=== PATIENT | female | born 1930 | race African-American/Black ===

== ENCOUNTER 2018-09-21 21:13 | Inpatient (IN) | payer MEDICARE, OTHER ==
[~2018-09-21] VITALS: Ht 154.9 cm; Wt 81.3 kg
[2018-09-21 21:15] VITALS: BP 171/89
[2018-09-21] MEDS ORDERED: Acetaminophen 650 MG SUPP RECTAL ONE (21:30)
[2018-09-21] MEDS ORDERED: NS 1000ml 2,200 ML IVLG ONE (21:30)
[2018-09-21] MEDS ORDERED: Piperacillin/Tazobactam 3.375 GM in NS 110 ML IVPB ONE (22:15)
[2018-09-21 22:47] LABS: HEMATOCRIT 33.9 % (37.0-47.0); HEMOGLOBIN 11.5 G/DL (12.0-16.0); MEAN CORPUSCULAR VOLUME 89 FL (80-99); PLATELET COUNT 103 K/UL (150-450); RED CELL DISTRIBUTION WIDTH 12.5 % (11.6-14.8)
[2018-09-21 22:51] LABS: ANION GAP 9 mmol/L (5-15); BLOOD UREA NITROGEN 31 mg/dL (7-18); CARBON DIOXIDE 25 MMOL/L (21-32); CHLORIDE 106 MMOL/L (98-107); CREATININE 1.4 MG/DL (0.55-1.30); POTASSIUM 4.2 MMOL/L (3.5-5.1); SODIUM 139 MMOL/L (136-145)
[2018-09-21 23:04] LABS: ALANINE AMINOTRANSFERASE 33 U/L (12-78); ALBUMIN 2.9 G/DL (3.4-5.0); ALBUMIN/GLOBULIN RATIO 0.7 (1.0-2.7); ALKALINE PHOSPHATASE 84 U/L (46-116); ASPARTATE AMINO TRANSFERASE 29 U/L (15-37); BILIRUBIN,TOTAL 0.6 MG/DL (0.2-1.0); CKMB 1.4 NG/ML (0.0-3.6); CREATINE KINASE 75 U/L (26-308)
[2018-09-21 23:42] LABS: BILIRUBIN, URINE NEGATIVE (NEGATIVE); GLUCOSE, URINE (UA) NEGATIVE (NEGATIVE); KETONES,URINE 1+ (NEGATIVE); LEUKOCYTE ESTERASE ,URINE 3+ (NEGATIVE); NITRITE,URINE POSITIVE (NEGATIVE); PH,URINE 6 (4.5-8.0); PROTEIN,URINE 3+ (NEGATIVE); UROBILINOGEN,URINE NORMAL MG/DL (0.0-1.0)
[2018-09-21 23:53] LABS: COLOR,URINE YELLOW
[2018-09-21 23:54] LABS: APPEARANCE,URINE CLOUDY
--- NOTE | 2018-09-22 00:35 | Emergency Room Report ---
History of Present Illness General Chief Complaint: Fever Source: Medical Record, Caregiver Present Illness HPI Is an 88-year-old female with history hypertension and also,. She presents with chief complaint of fever and altered mental status. At baseline she is bed bound and noncommunicative. She had a high fever tonight. Decreased appetite. Sleeping more. 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 Allergies: Coded Allergies: No Known Allergies (Unverified , 09/21/18) Patient History Past Medical History: see triage record, old chart reviewed, HTN Past Surgical History: other Pertinent Family History: none Social History: Denies: smoking Last Menstrual Period: n/a Now: No Immunizations: other Reviewed Nursing Documentation: PMH: Agreed; PSxH: Agreed Nursing Documentation-PMH Past Medical History: No History, Except For Hx Cardiac Problems: Yes - hypertensive heart and renal disease, afib, Hx Hypertension: Yes Hx Dialysis: No - CKD stage 3 Hx Neurological Problems: Yes - alzheimer's, dementia, neuropathy Review of Systems Constitutional: Reports: fever, malaise, weakness Eye: Denies: eye pain, blurred vision ENT: Denies: ear pain, nose congestion, throat swelling Respiratory: Denies: cough, shortness of breath Cardiovascular: Denies: chest pain, palpitations Gastrointestinal: Denies: abdominal pain, diarrhea, nausea, vomiting Musculoskeletal: Denies: back pain, joint pain Skin: Denies: rash Neurological: Denies: headache, numbness Endocrine: Denies: increased thirst, increased urine Hematologic/Lymphatic: Denies: easy bruising All Other Systems: negative except mentioned in HPI Physical Exam Vital Signs Date Time Temp Pulse Resp B/P (MAP) Pulse Ox O2 Delivery O2 Flow Rate FiO2 09/21/18 21:06 101.1 100 16 171/89 98 Room Air vitals with fever and high blood pressure Sp02 EP Interpretation: reviewed, normal General Appearance: lethargic, Chronically Ill Head: normocephalic, atraumatic Eyes: bilateral eye PERRL, bilateral eye EOMI ENT: hearing grossly normal, dry mucus membranes Neck: full range of motion, supple, no meningismus Respiratory: chest non-tender, lungs clear, normal breath sounds Cardiovascular #1: regular rate, rhythm, no murmur Gastrointestinal: normal bowel sounds, non tender, no mass, no organomegaly, no bruit, non-distended Musculoskeletal: back normal, normal range of motion Neurologic: grossly normal Psychiatric: mood/affect normal Skin: warm/dry Medical Decision Making Diagnostic Impression: Primary Impression: Sepsis Qualified Codes: A41.9 - Sepsis, unspecified organism Additional Impressions: Acute metabolic encephalopathy Healthcare-associated pneumonia UTI (urinary tract infection) Qualified Codes: N30.00 - Acute cystitis without hematuria Anemia Qualified Codes: D64.9 - Anemia, unspecified ER Course Patient presents with encephalopathy secondary to sepsis from UTI. She may also have pneumonia. Antibiotics given. IV fluid given. Patient will be admitted to the service of Dr. Green. I discussed case with him. Lab Results Impression labs with positive urine EKG Diagnostic Results Rate: normal Rhythm: NSR ST Segments: no acute changes Rhythm Strip Diag. Results Rhythm Strip Time: 00:51 EP Interpretation: yes Rate: 90 Rhythm: NSR, no PVC's, no ectopy Chest X-Ray Diagnostic Results Chest X-Ray Diagnostic Results : Chest X-Ray Ordered: Yes # of Views/Limited/Complete: 1 View Indication: Shortness of Breath EP Interpretation: Yes Interpretation: no effusion, no pneumothorax, other - RML infiltrate Impression: Other - RML infiltrate Electronically Signed by: Haja Aden MD Last Vital Signs Date Time Temp Pulse Resp B/P (MAP) Pulse Ox O2 Delivery O2 Flow Rate FiO2 09/22/18 00:28 98.1 09/21/18 21:06 100 16 171/89 98 Room Air Status: improved Disposition: ADMITTED INPATIENT Condition: Serious Referrals: NON PHYSICIAN (PCP) Haja Aden MD Sep 22, 2018 00:35
[2018-09-22 01:00] VITALS: BP 134/84
[2018-09-22 04:00] VITALS: BP 142/82
[2018-09-22 08:00] VITALS: BP 147/66
[2018-09-22] MEDS ORDERED: ANUSOL HC1 SUPP RECTAL (08:24)
[2018-09-22] MEDS ORDERED: GABAPENTIN100 MG ORAL (08:24)
[2018-09-22] MEDS ORDERED: MIRALAX17 G2 ORAL (08:24)
[2018-09-22] MEDS ORDERED: ZYPREXA2.5 MG (08:24)
[2018-09-22] MEDS ORDERED: ESCITALOPRAM OX10 MG ORAL (08:24)
[2018-09-22] MEDS ORDERED: TRAMADOL HCL50 MG ORAL (08:24)
[2018-09-22] MEDS ORDERED: HYDROCORTISONE25 MG RC (08:24)
[2018-09-22] MEDS ORDERED: ASPIR 8181 MG ORAL (08:24)
[2018-09-22] MEDS ORDERED: SENNA8.6 M2 PO (08:24)
[2018-09-22] MEDS ORDERED: DUONEB 0.5-3(2.53 ML HHN (08:24)
[2018-09-22] MEDS ORDERED: DOCUSATE SODIU250 MG ORAL (08:24)
[2018-09-22] MEDS ORDERED: ACETAMINOPHEN325 M1 ORAL (08:24)
[2018-09-22] MEDS ORDERED: MULTI VITAMIN1 EACH ORAL (08:24)
[2018-09-22] MEDS ORDERED: AMLODIPINE BESYL5 MG ORAL (08:24)
[2018-09-22] MEDS ORDERED: Heparin 5000 units/ml inj SUBQ SCH (09:00)
[2018-09-22] MEDS: cefTRIAXone 1 GM in NS 55 ML IVPB SCH (10:37)
--- NOTE | 2018-09-22 11:55 | History & Physical ---
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 Patient had a fever of 101 earlier in the day and was transfered to the ER for further workup. She has a history of hospitalizations for UTIs. She is more lethargic per nurse at bedside and is sleeping but arousable. Ua shows > 180 WBC. Per staff at facility no cough. PAST MEDICAL HISTORY: ~Includes hypertension, dementia, hyperlipidemia, major depressive disorder, hypothyroidism, constipation, and DVT, on Coumadin. PAST SURGICAL HISTORY: ~Unknown. ALLERGIES: ~No known drug allergies. SOCIAL HISTORY: ~Per durable power of ip technology transactions attorney, the patient is full code. REVIEW OF SYSTEMS: Unobtainable because of the patient's mental status. MEDICATIONS: Active Scripts Medications Dose Route/Sig Max Daily Dose Days Date Category Ultram* (Tramadol HCl) 50 Mg Tablet 50 Mg ORAL BID PRN 09/22/18 Reported Senna (Sennosides) 8.6 Mg Tablet 8.6 Mg PO DAILY 09/22/18 Reported Zyprexa* (Olanzapine) 2.5 Mg Tablet 2.5 Mg BID 09/22/18 Reported Miralax* (Polyethylene Glycol) 17 Gm Powd.pack 17 Gm ORAL BID 09/22/18 Reported DuoNeb 0.5-3(2.5)mg/3ml (Ipratropium/Albuterol Sulfate) 3 Ml Ampul.neb 3 Ml HHN BID 09/22/18 Reported Hydrocortisone Acetate Supp (Hydrocortisone Acetate) Y Supp 25 Mg RC BID PRN 09/22/18 Reported Gabapentin* (Gabapentin) 100 Mg Capsule 100 Mg ORAL THREE TIMES A DAY 09/22/18 Reported Escitalopram Oxalate* (Escitalopram Oxalate) 10 Mg Tablet 10 Mg ORAL DAILY 09/22/18 Reported Docusate Sodium* (Docusate Sodium) 250 Mg Capsule 250 Mg ORAL TWICE A DAY 09/22/18 Reported Multi Vitamin Daily (Multivitamin) 1 Each Tablet 1 Tab ORAL DAILY 09/22/18 Reported Aspir 81* (Aspirin) 81 Mg Tablet.dr 81 Mg ORAL DAILY 09/22/18 Reported Anucort-Hc (Hydrocortisone) Y Supp 25 Mg RECTAL BID PRN 09/22/18 Reported Amlodipine Besylate* (Amlodipine Besylate) 5 Mg Tablet 5 Mg ORAL DAILY 09/22/18 Reported Acetaminophen 325MG Tablet* (Acetaminophen) 325 Mg Tablet 325 Mg ORAL BID PRN 09/22/18 Reported PHYSICAL EXAMINATION: VITAL SIGNS: Vital Signs Date Time Temp Pulse Resp B/P (MAP) Pulse Ox O2 Delivery O2 Flow Rate FiO2 09/21/18 21:06 101.1 100 16 171/89 98 Room Air 09/22/18 01:00 2.0 100 GEN: lethargic. arousable. minimally verbal ~~~HEENT: ~Normocephalic/atraumatic. ~Oropharynx is dry. ~~ NECK: ~Supple. ~No JVD. ~~ LUNGS: ~Clear to auscultation bilaterally. ~No crackles, rhonchi, or rales. ~~ CARDIOVASCULAR: ~Regular rate and rhythm. ~Normal S1, S2. ~~ ABDOMEN: ~Soft. ~Obese, slightly distended. ~~ EXTREMITIES: ~No clubbing, cyanosis, or edema. LABS: Laboratory Tests Test 09/21/18 22:10 09/21/18 23:15 White Blood Count 10.0 K/UL (4.8-10.8) Red Blood Count 3.80 M/UL (4.20-5.40) L Hemoglobin 11.5 G/DL (12.0-16.0) L Hematocrit 33.9 % (37.0-47.0) L Mean Corpuscular Volume 89 FL (80-99) Mean Corpuscular Hemoglobin 30.3 PG (27.0-31.0) Mean Corpuscular Hemoglobin Concent 33.9 G/DL (32.0-36.0) Red Cell Distribution Width 12.5 % (11.6-14.8) Platelet Count 103 K/UL (150-450) L Mean Platelet Volume 5.9 FL (6.5-10.1) L Neutrophils (%) (Auto) % (45.0-75.0) Lymphocytes (%) (Auto) % (20.0-45.0) Monocytes (%) (Auto) % (1.0-10.0) Eosinophils (%) (Auto) % (0.0-3.0) Basophils (%) (Auto) % (0.0-2.0) Differential Total Cells Counted 100 Neutrophils % (Manual) 83 % (45-75) H Lymphocytes % (Manual) 5 % (20-45) L Monocytes % (Manual) 7 % (1-10) Eosinophils % (Manual) 0 % (0-3) Basophils % (Manual) 0 % (0-2) Band Neutrophils 5 % (0-8) Platelet Estimate Decreased L Platelet Morphology Normal Red Blood Cell Morphology Normal Sodium Level 139 MMOL/L (136-145) Potassium Level 4.2 MMOL/L (3.5-5.1) Chloride Level 106 MMOL/L (98-107) Carbon Dioxide Level 25 MMOL/L (21-32) Anion Gap 9 mmol/L (5-15) Blood Urea Nitrogen 31 mg/dL (7-18) H Creatinine 1.4 MG/DL (0.55-1.30) H Estimat Glomerular Filtration Rate mL/min (>60) Glucose Level 121 MG/DL (74-106) H Lactic Acid Level 0.60 mmol/L (0.4-2.0) Calcium Level 10.0 MG/DL (8.5-10.1) Total Bilirubin 0.6 MG/DL (0.2-1.0) Aspartate Amino Transf (AST/SGOT) 29 U/L (15-37) Alanine Aminotransferase (ALT/SGPT) 33 U/L (12-78) Alkaline Phosphatase 84 U/L (46-116) Total Creatine Kinase 75 U/L (26-308) Creatine Kinase MB 1.4 NG/ML (0.0-3.6) Creatine Kinase MB Relative Index 1.8 Troponin I 0.000 ng/mL (0.000-0.056) Total Protein 7.2 G/DL (6.4-8.2) Albumin 2.9 G/DL (3.4-5.0) L Globulin 4.3 g/dL Albumin/Globulin Ratio 0.7 (1.0-2.7) L Urine Color Yellow Urine Appearance Cloudy Urine pH 6 (4.5-8.0) Urine Specific [place] 1.015 (1.005-1.035) Urine Protein 3+ (NEGATIVE) H Urine Glucose (UA) Negative (NEGATIVE) Urine Ketones 1+ (NEGATIVE) H Urine Blood 3+ (NEGATIVE) H Urine Nitrite Positive (NEGATIVE) H Urine Bilirubin Negative (NEGATIVE) Urine Urobilinogen Normal MG/DL (0.0-1.0) Urine Leukocyte Esterase 3+ (NEGATIVE) H Urine RBC 15-20 /HPF (0 - 2) H Urine WBC Tntc /HPF (0 - 2) H Urine Squamous Epithelial Cells Few /LPF (NONE/OCC) Urine Bacteria Many /HPF (NONE) H CXR - no infiltrates. ASSESSMENT: 1.fever likely secondary to UTI 2.Lethargy 3.Acute kidney injury, likely secondary to dehydration. 4. Tachycardia 5. dementia 6. h/o hypothyroidism 7. h/o dvt PLAN: ~ 1. Admit to med/surg. 2. ID consulted 3. abx - CTX and flagyl 4. resume home meds 5. f/u urine culture 6. check TSH bc not on synthroid 7. IVF DVT px - Heparin FC Time spent on dictation: ~Greater than 35 minutes. Morales Bhakta MD Sep 22, 2018 11:55
[2018-09-22 12:00] VITALS: BP 151/85
--- NOTE | 2018-09-22 12:01 | Infectious Diseases Prog Note ---
Assessment/Plan Assessment/Plan Full consult dictated: A) 1) uti, sepsis, fevers, rule out pna 2) pmh noted 3) allergies - nkda P) 1) rocephin and flagyl 2) check cultures, labs and chest x-ray 3) d/w Dr. Green 4) thank you Subjective Allergies: Coded Allergies: No Known Allergies (Unverified , 09/21/18) Objective Vital Signs Last 24 Hour Vital Signs Date Time Temp Pulse Resp B/P (MAP) Pulse Ox O2 Delivery O2 Flow Rate FiO2 09/22/18 09:00 Nasal Cannula 2.0 09/22/18 08:00 97.2 120 18 147/66 (93) 90 09/22/18 08:00 118 09/22/18 04:00 62 09/22/18 02:26 Nasal Cannula 3.0 09/22/18 01:10 73 09/22/18 01:00 98.2 103 20 147/59 96 Room Air 2.0 100 09/22/18 00:28 98.1 09/21/18 21:15 101.1 16 171/89 98 Room Air 09/21/18 21:15 100 16 Room Air 09/21/18 21:06 101.1 100 16 171/89 98 Room Air Height (Feet): 5 Height (Inches): 1.00 Weight (Pounds): 182 Microbiology Date/Time Source Procedure Growth Status 09/21/18 23:10 Nasal Nares Left Influenza Types A,B Antigen (FARRUKH) - Final Complete 09/22/18 00:30 Rectum Received Laboratory Tests Test 09/21/18 22:10 09/21/18 23:15 White Blood Count 10.0 K/UL (4.8-10.8) Red Blood Count 3.80 M/UL (4.20-5.40) L Hemoglobin 11.5 G/DL (12.0-16.0) L Hematocrit 33.9 % (37.0-47.0) L Mean Corpuscular Volume 89 FL (80-99) Mean Corpuscular Hemoglobin 30.3 PG (27.0-31.0) Mean Corpuscular Hemoglobin Concent 33.9 G/DL (32.0-36.0) Red Cell Distribution Width 12.5 % (11.6-14.8) Platelet Count 103 K/UL (150-450) L Mean Platelet Volume 5.9 FL (6.5-10.1) L Neutrophils (%) (Auto) % (45.0-75.0) Lymphocytes (%) (Auto) % (20.0-45.0) Monocytes (%) (Auto) % (1.0-10.0) Eosinophils (%) (Auto) % (0.0-3.0) Basophils (%) (Auto) % (0.0-2.0) Differential Total Cells Counted 100 Neutrophils % (Manual) 83 % (45-75) H Lymphocytes % (Manual) 5 % (20-45) L Monocytes % (Manual) 7 % (1-10) Eosinophils % (Manual) 0 % (0-3) Basophils % (Manual) 0 % (0-2) Band Neutrophils 5 % (0-8) Platelet Estimate Decreased L Platelet Morphology Normal Red Blood Cell Morphology Normal Sodium Level 139 MMOL/L (136-145) Potassium Level 4.2 MMOL/L (3.5-5.1) Chloride Level 106 MMOL/L (98-107) Carbon Dioxide Level 25 MMOL/L (21-32) Anion Gap 9 mmol/L (5-15) Blood Urea Nitrogen 31 mg/dL (7-18) H Creatinine 1.4 MG/DL (0.55-1.30) H Estimat Glomerular Filtration Rate mL/min (>60) Glucose Level 121 MG/DL (74-106) H Lactic Acid Level 0.60 mmol/L (0.4-2.0) Calcium Level 10.0 MG/DL (8.5-10.1) Total Bilirubin 0.6 MG/DL (0.2-1.0) Aspartate Amino Transf (AST/SGOT) 29 U/L (15-37) Alanine Aminotransferase (ALT/SGPT) 33 U/L (12-78) Alkaline Phosphatase 84 U/L (46-116) Total Creatine Kinase 75 U/L (26-308) Creatine Kinase MB 1.4 NG/ML (0.0-3.6) Creatine Kinase MB Relative Index 1.8 Troponin I 0.000 ng/mL (0.000-0.056) Total Protein 7.2 G/DL (6.4-8.2) Albumin 2.9 G/DL (3.4-5.0) L Globulin 4.3 g/dL Albumin/Globulin Ratio 0.7 (1.0-2.7) L Urine Color Yellow Urine Appearance Cloudy Urine pH 6 (4.5-8.0) Urine Specific [place] 1.015 (1.005-1.035) Urine Protein 3+ (NEGATIVE) H Urine Glucose (UA) Negative (NEGATIVE) Urine Ketones 1+ (NEGATIVE) H Urine Blood 3+ (NEGATIVE) H Urine Nitrite Positive (NEGATIVE) H Urine Bilirubin Negative (NEGATIVE) Urine Urobilinogen Normal MG/DL (0.0-1.0) Urine Leukocyte Esterase 3+ (NEGATIVE) H Urine RBC 15-20 /HPF (0 - 2) H Urine WBC Tntc /HPF (0 - 2) H Urine Squamous Epithelial Cells Few /LPF (NONE/OCC) Urine Bacteria Many /HPF (NONE) H Current Medications Medications (Trade) Dose Ordered Sig/Jonathon Route PRN Reason Start Time Stop Time Status Last Admin Dose Admin Acetaminophen (Tylenol) 650 mg Q4H PRN ORAL Mild Pain (Pain Scale 1-3) 09/22/18 00:45 10/22/18 00:44 Ceftriaxone Sodium 1 gm/ Sodium Chloride 55 ml @ 110 mls/hr DAILY IVPB 09/22/18 09:00 09/29/18 08:59 09/22/18 10:37 Dextrose (Dextrose 50%) 25 ml Q30M PRN IV Hypoglycemia 09/22/18 00:45 10/22/18 00:44 Dextrose (Dextrose 50%) 50 ml Q30M PRN IV Hypoglycemia 09/22/18 00:45 10/22/18 00:44 Heparin Sodium (Porcine) (Heparin 5000 units/ml) 5,000 units EVERY 12 HOURS SUBQ 09/22/18 21:00 10/22/18 08:59 Ondansetron HCl (Zofran) 4 mg Q6H PRN IVP Nausea & Vomiting 09/22/18 00:45 10/22/18 00:44 Sodium Chloride 1,000 ml @ 75 mls/hr [id number] IV 09/22/18 12:00 10/22/18 11:59 UNV Sodium Chloride 1,000 ml @ 75 mls/hr [id number] IVLG 09/22/18 01:39 10/22/18 01:38 Michael Menendez MD Sep 22, 2018 12:01
--- NOTE | 2018-09-22 12:50 | Diagnostic Imaging Report ---
Indication: Shortness of breath Technique: XRAY Chest 1v Comparison: None Findings: Heart size within normal limits for AP technique. Atherosclerotic calcifications noted in the mildly tortuous aorta. There is generalized interstitial prominence of uncertain chronicity. There is right infrahilar airspace opacities.) Sulci are sharp. No evidence of pneumothorax. There is osteopenia and degenerative change of the spine. No acute osseous body. Impression: Generalized interstitial prominence of uncertain chronicity. Correlate to exclude the possibility of mild congestive changes/fluid overload. Asymmetric Infrahilar opacities on the right possibly related to ectatic central vasculature. Possibility of infectious infiltrate not excludable. Consider further evaluation with PA and lateral views of the chest. Study obtained via the emergency department however patient admitted to the hospital at time of dictation of the final report.
--- NOTE | 2018-09-22 17:12 | Cardiology Report ---
APPROVED REPORT EKG Measurement Heart [id number] Normal sinus rhythm Normal ECG
[2018-09-22 20:00] VITALS: BP 152/72
[2018-09-22] MEDS: Heparin 5000 units/ml inj SUBQ SCH (20:36)
[2018-09-22] MEDS: OLANZapine 2.5mg tab ORAL SCH (22:29)
[2018-09-23] VITALS: BP 155/85
[2018-09-23 04:00] VITALS: BP 129/79
[2018-09-23 06:37] LABS: HEMATOCRIT 33.1 % (37.0-47.0); HEMOGLOBIN 11.1 G/DL (12.0-16.0); MEAN CORPUSCULAR VOLUME 88 FL (80-99); PLATELET COUNT 98 K/UL (150-450); RED BLOOD COUNT 3.77 M/UL (4.20-5.40); RED CELL DISTRIBUTION WIDTH 12.5 % (11.6-14.8); WHITE BLOOD COUNT 5.7 K/UL (4.8-10.8)
[2018-09-23 07:02] LABS: ANION GAP 8 mmol/L (5-15); BLOOD UREA NITROGEN 29 mg/dL (7-18); CALCIUM 9.6 MG/DL (8.5-10.1); CARBON DIOXIDE 24 MMOL/L (21-32); CHLORIDE 109 MMOL/L (98-107); CREATININE 1.3 MG/DL (0.55-1.30); POTASSIUM 3.8 MMOL/L (3.5-5.1); SODIUM 141 MMOL/L (136-145)
[2018-09-23 07:59] VITALS: BP 170/80
[2018-09-23] MEDS: Aspirin EC 81mg tab ORAL SCH (08:21)
[2018-09-23] MEDS: OLANZapine 2.5mg tab ORAL SCH (08:21)
[2018-09-23] MEDS: cefTRIAXone 1 GM in NS 55 ML IVPB SCH (08:21)
[2018-09-23] MEDS: Heparin 5000 units/ml inj SUBQ SCH ×2 (08:24→21:00)
[2018-09-23] MEDS ORDERED: Miralax 17gm pkt ORAL PRN (09:00)
--- NOTE | 2018-09-23 11:16 | Diagnostic Imaging Report ---
Indication: Cough Technique: One view of the chest Comparison: 09/21/2018 Findings: Atelectatic changes at the left lung base again demonstrated. Lungs and pleural spaces otherwise clear. The heart size is normal. The aorta is tortuous and calcified. Slightly better inspiration currently, with improved aeration of the right infrahilar region Impression: Left basilar atelectasis. No acute process otherwise
[2018-09-23 12:08] VITALS: BP_SYST 150; BP_SYST 157; BP_DIAS 70
[2018-09-23] MEDS: Vancomycin 750mg/NS 250ml IVPB SCH (13:28)
--- NOTE | 2018-09-23 14:17 | Infectious Diseases Prog Note ---
Assessment/Plan Assessment/Plan A) 1) gram neg bacteremia, ? gram + bacteremia, sepsis, gram neg uti/ pyelonephritis 2) sepsis, fevers, ams 3) allergies - nkda P) 1) meropenem, vancomycin 2) f/u on cultures and labs 3) will f/u Subjective Constitutional: Reports: other - more alert; Denies: fever Respiratory: Denies: shortness of breath Cardiovascular: Denies: chest pain Gastrointestinal/Abdominal: Denies: nausea, vomiting Allergies: Coded Allergies: No Known Allergies (Unverified , 09/21/18) Objective Vital Signs Last 24 Hour Vital Signs Date Time Temp Pulse Resp B/P (MAP) Pulse Ox O2 Delivery O2 Flow Rate FiO2 09/23/18 12:08 98.3 77 18 150/70 (96) 97 09/23/18 11:53 79 09/23/18 08:42 Nasal Cannula 2.0 09/23/18 08:21 70 170/80 09/23/18 07:59 98.3 70 18 170/80 (110) 97 09/23/18 07:35 75 09/23/18 04:00 98.3 102 18 129/79 (96) 97 09/23/18 04:00 69 09/23/18 00:00 71 09/23/18 00:00 97.6 72 18 155/85 (108) 96 09/22/18 21:00 Nasal Cannula 2.0 09/22/18 20:00 83 09/22/18 20:00 98.1 77 16 152/72 (98) 95 09/22/18 16:00 73 Height (Feet): 5 Height (Inches): 1.00 Weight (Pounds): 179 General Appearance: no acute distress HEENT: normocephalic, atraumatic, anicteric Respiratory/Chest: lungs clear, normal breath sounds, no respiratory distress Cardiovascular: normal rate, regular rhythm, no gallop/murmur, no JVD Abdomen: normal bowel sounds, soft, non tender, no organomegaly Extremities: no cyanosis Skin: no rash Microbiology Date/Time Source Procedure Growth Status 09/21/18 22:15 Blood Blood Culture - Preliminary Resulted 09/21/18 22:10 Blood Blood Culture - Preliminary Resulted 09/21/18 23:10 Nasal Nares Left Influenza Types A,B Antigen (FARRUKH) - Final Complete 09/21/18 23:15 Urine,Clean Catch Urine Culture - Preliminary Gram Negative Bacillus 1 Resulted 09/22/18 00:30 Rectum Received Laboratory Tests Test 09/23/18 05:20 White Blood Count 5.7 K/UL (4.8-10.8) Red Blood Count 3.77 M/UL (4.20-5.40) L Hemoglobin 11.1 G/DL (12.0-16.0) L Hematocrit 33.1 % (37.0-47.0) L Mean Corpuscular Volume 88 FL (80-99) Mean Corpuscular Hemoglobin 29.5 PG (27.0-31.0) Mean Corpuscular Hemoglobin Concent 33.6 G/DL (32.0-36.0) Red Cell Distribution Width 12.5 % (11.6-14.8) Platelet Count 98 K/UL (150-450) L Mean Platelet Volume 6.5 FL (6.5-10.1) Neutrophils (%) (Auto) % (45.0-75.0) Lymphocytes (%) (Auto) % (20.0-45.0) Monocytes (%) (Auto) % (1.0-10.0) Eosinophils (%) (Auto) % (0.0-3.0) Basophils (%) (Auto) % (0.0-2.0) Differential Total Cells Counted 100 Neutrophils % (Manual) 74 % (45-75) Lymphocytes % (Manual) 13 % (20-45) L Monocytes % (Manual) 12 % (1-10) H Eosinophils % (Manual) 1 % (0-3) Basophils % (Manual) 0 % (0-2) Band Neutrophils 0 % (0-8) Platelet Estimate Decreased L Platelet Morphology Normal Red Blood Cell Morphology Normal Sodium Level 141 MMOL/L (136-145) Potassium Level 3.8 MMOL/L (3.5-5.1) Chloride Level 109 MMOL/L (98-107) H Carbon Dioxide Level 24 MMOL/L (21-32) Anion Gap 8 mmol/L (5-15) Blood Urea Nitrogen 29 mg/dL (7-18) H Creatinine 1.3 MG/DL (0.55-1.30) Estimat Glomerular Filtration Rate mL/min (>60) Glucose Level 92 MG/DL (74-106) Calcium Level 9.6 MG/DL (8.5-10.1) Thyroid Stimulating Hormone (TSH) 6.855 uiU/mL (0.358-3.740) Current Medications Medications (Trade) Dose Ordered Sig/Jonathon Route PRN Reason Start Time Stop Time Status Last Admin Dose Admin Acetaminophen (Tylenol) 650 mg Q4H PRN ORAL Mild Pain (Pain Scale 1-3) 09/22/18 00:45 10/22/18 00:44 09/22/18 20:39 Amlodipine Besylate (Norvasc) 5 mg DAILY ORAL 09/23/18 09:00 10/23/18 08:59 09/23/18 08:21 Aspirin (Ecotrin) 81 mg DAILY ORAL 09/23/18 09:00 10/23/18 08:59 09/23/18 08:21 Dextrose (Dextrose 50%) 25 ml Q30M PRN IV Hypoglycemia 09/22/18 00:45 10/22/18 00:44 Dextrose (Dextrose 50%) 50 ml Q30M PRN IV Hypoglycemia 09/22/18 00:45 10/22/18 00:44 Escitalopram Oxalate (Lexapro) 10 mg DAILY ORAL 09/23/18 09:00 10/23/18 08:59 09/23/18 08:21 Gabapentin (Neurontin) 100 mg THREE TIMES A DAY ORAL 09/23/18 09:00 10/23/18 08:59 09/23/18 12:15 Heparin Sodium (Porcine) (Heparin 5000 units/ml) 5,000 units EVERY 12 HOURS SUBQ 09/22/18 21:00 10/22/18 08:59 09/22/18 20:36 Meropenem 500 mg/ Sodium Chloride 55 ml @ 110 mls/hr EVERY 12 HOURS IVPB 09/23/18 21:00 09/28/18 20:59 Multivitamins (Multivitamins) 1 tab DAILY ORAL 09/23/18 09:00 10/23/18 08:59 09/23/18 08:21 Ondansetron HCl (Zofran) 4 mg Q6H PRN IVP Nausea & Vomiting 09/22/18 00:45 10/22/18 00:44 Polyethylene Glycol (Miralax) 17 gm BIDPRN PRN ORAL Constipation 09/23/18 09:00 10/23/18 08:59 Quetiapine Fumarate (SEROquel) 25 mg EVERY 6 HOURS ORAL 09/23/18 12:00 10/23/18 11:59 09/23/18 12:14 Sodium Chloride 1,000 ml @ 75 mls/hr [id number] IVLG 09/22/18 01:39 10/22/18 01:38 09/22/18 16:04 Vancomycin HCl (Vanco rx to dose) 1 ea DAILY PRN MISC Per rx protocol 09/23/18 12:15 10/23/18 12:14 Vancomycin/Sodium Chloride 250 ml @ 166.667 mls/hr Q24H IVPB 09/23/18 13:00 09/28/18 12:59 09/23/18 13:28 Michael Menendez MD Sep 23, 2018 14:17
[2018-09-23 16:20] VITALS: BP 151/64
--- NOTE | 2018-09-23 18:00 | Consultation ---
DATE OF CONSULTATION: 09/23/2018 INFECTIOUS DISEASES CONSULTATION CONSULTING PHYSICIAN: Michael Menendez M.D. ATTENDING PHYSICIAN: Morales Green MD REFERRING PHYSICIAN: Morales Green MD REASON FOR CONSULTATION: Sepsis, gram-negative bacteremia, possible gram-positive bacteremia, gram-negative urinary tract infection, pyelonephritis, and fevers. CHIEF COMPLAINT: The patient's chief complaint coming into the hospital is sepsis and pneumonia. HISTORY OF PRESENT ILLNESS: This is an 88-year-old female, who comes into [facility] with altered mental status. The patient had a temperature as high as 101.1. The patient has also had altered mental status and tachycardia. There is a question if the patient had pneumonia also; however, chest x-ray at this time shows atelectasis. Blood cultures have grown out gram-negative rods and urine culture with gram-negative bacilli. There were some bottles that were positive for gram-positive organisms. Identification of blood culture organisms are pending at this time. The patient was on Rocephin yesterday however because of the gram-positive organisms and history of recurrent urinary tract infection, we will place the patient on meropenem and vancomycin. Case was discussed with Dr. Morales Green. MAR was noted. Orders were noted. Notes were reviewed. Case was discussed the patient's family at the bedside yesterday when I saw the patient. The patient will be continued on meropenem and vancomycin for now. REVIEW OF SYSTEMS: CONSTITUTIONAL: The patient is less febrile today. She did come in with fevers, could not assess if she had chills. Today she is more alert. She did come in with altered mental status. She is more responsive today. HEAD AND NECK: No head pain or neck pain. No neck stiffness or neck pain. CARDIAC: No chest pain. No pressors. GASTROINTESTINAL: No nausea, vomiting, abdominal pain, or diarrhea. No CVA tenderness. GENITOURINARY: No Castrejon. PULMONARY: The patient has no significant congestion, shortness of breath, hemoptysis, secretions. SKIN: No rash or itching. EXTREMITIES: No extremity pain. NEUROLOGIC: No seizure activity. She has generalized fatigue but more responsive today. PAST MEDICAL HISTORY: The patient's past medical history includes history of following. The patient has a past medical history of hypertension, dementia, hyperlipidemia. She has history of major depression or depression. She has history of hypothyroidism, history of constipation, and DVT. ALLERGIES: No known drug allergies. No antibiotic allergies. SOCIAL HISTORY: Negative for smoking, alcohol, or drug abuse. FAMILY HISTORY: Noncontributory. No mention of exposure to tuberculosis or cancer. No history of diabetes in the family, no mention of that. MEDICATIONS: Upon reviewing the MAR, she is on following medications. She is on meropenem and vancomycin. She was on Rocephin which I discontinued. She is on Seroquel, amlodipine, aspirin, Lexapro, Neurontin, multivitamins, MiraLAX, heparin, IV fluids, acetaminophen, Zofran. Outside medications noted and reconciled. Antibiotics, vancomycin and meropenem. PHYSICAL EXAMINATION: VITAL SIGNS: T-max is 101.1. Heart rate has been as high as 120, temperature as high as 101.1. Other vital signs currently temperature 98.3, pulse rate 77, respiratory rate 18, blood pressure 152/70, O2 saturation 97%. GENERAL: Alert and responsive, much more alert today than yesterday. HEAD AND NECK: Oral exam, no thrush. Eye exam, no icterus. Normocephalic. No icterus. No thrush. Neck is supple. HEART: Regular. No obvious gallop or murmur. No friction rub. ABDOMEN: Soft. Positive bowel sounds. Nontender. LUNGS: Few bilateral rhonchi. No definite rales. May be decreased breath sounds at bases. SKIN: No rash. MUSCULOSKELETAL: No effusion. Legs are without cellulitis. PERIPHERAL VASCULAR: No cyanosis or gangrene. GENITOURINARY: No Castrejon. No CVA tenderness. LINES: Line sites without phlebitis. NEUROLOGIC: Generalized weakness, responsive. LABORATORY DATA: White count 5.7, hemoglobin 11.1. Creatinine is 1.3. LFTs were noted. UA had 3+ leukocyte esterase, too many to count white blood cells, many bacteria. Urine culture with gram-negative bacilli greater 100,000. Blood cultures gram-negative rods with gram-negative bacilli, in all four bottles but also she had gram-positive seen in the blood. She has no central line. Chest x-ray showed the following, it showed left basilar atelectasis and improved aeration in the right infrahilar region. Previous chest x-ray showed infrahilar opacity in the right, were noted. ASSESSMENT AND PLAN: 1. The patient has gram-negative bacteremia, possible gram-positive bacteremia, sepsis, altered mental status, fevers, tachycardia, SIRS criteria. She has a gram-negative urinary tract infection and pyelonephritis. Most likely she has gram-negative urinary tract infection and pyelonephritis with gram-negative bacteremia and gram-negative sepsis. It is unclear if she had an aspiration pneumonia process that is improved. Followup chest x-ray is improved. Based on location, it could have been aspiration and especially in view of her altered mental status and also possibly community-acquired pneumonia. Continue meropenem and vancomycin to cover gram-negative bacteremia and possible gram-positive bacteremia. Identification of cultures, blood and urine. Follow up chest x-ray shows improvement with atelectasis. Monitor laboratories. Check surveillance blood cultures. Continue meropenem and vancomycin for now for urinary tract infection, sepsis, and bacteremia, and gram-negative sepsis. 2. The patient has hypertension. Blood pressure treatment per primary. 3. Dimension. 4. Hyperlipidemia. 5. Depression. 6. Hypothyroidism 7. Constipation. 8. History of DVT. 9. The patient is on Coumadin. 10. The patient also is anemic. 11. No known drug allergies. 12. Social history is negative. 13. Family history is noncontributory. 14. MAR was noted. 15. Case discussed with RN. 16. Case discussed with Dr. Morales Green yesterday. 17. Continue treatment per primary consultants. 18. Notes and records were noted and orders were entered. Michael Menendez M.D. DR: Fitz JOB#: [id number] CC:
--- NOTE | 2018-09-23 18:31 | Discharge Summary ---
Discharge Summary Hospital Course Date of Admission Sep 21, 2018 at 23:28 Date of Discharge Admitting Diagnosis sepsis, pneumonia HPI Jennifer Bryant is a 88 year old female who was admitted on Sep 21, 2018 at 23:28 for Sepsis/Pneumonia Discharge Discharge Disposition Patient was discharged to Morales Green MD Sep 23, 2018 18:31
--- NOTE | 2018-09-23 18:31 | Internal Med Progress Note ---
Subjective Physician Name Morales Green Attending Physician Morales Green MD Current Medications Medications (Trade) Dose Ordered Sig/Jonathon Route PRN Reason Start Time Stop Time Status Last Admin Dose Admin Acetaminophen (Tylenol) 650 mg Q4H PRN ORAL Mild Pain (Pain Scale 1-3) 09/22/18 00:45 10/22/18 00:44 09/22/18 20:39 Amlodipine Besylate (Norvasc) 5 mg DAILY ORAL 09/23/18 09:00 10/23/18 08:59 09/23/18 08:21 Aspirin (Ecotrin) 81 mg DAILY ORAL 09/23/18 09:00 10/23/18 08:59 09/23/18 08:21 Dextrose (Dextrose 50%) 25 ml Q30M PRN IV Hypoglycemia 09/22/18 00:45 10/22/18 00:44 Dextrose (Dextrose 50%) 50 ml Q30M PRN IV Hypoglycemia 09/22/18 00:45 10/22/18 00:44 Escitalopram Oxalate (Lexapro) 10 mg DAILY ORAL 09/23/18 09:00 10/23/18 08:59 09/23/18 08:21 Gabapentin (Neurontin) 100 mg THREE TIMES A DAY ORAL 09/23/18 09:00 10/23/18 08:59 09/23/18 17:22 Heparin Sodium (Porcine) (Heparin 5000 units/ml) 5,000 units EVERY 12 HOURS SUBQ 09/22/18 21:00 10/22/18 08:59 09/22/18 20:36 Meropenem 500 mg/ Sodium Chloride 55 ml @ 110 mls/hr EVERY 12 HOURS IVPB 09/23/18 21:00 09/28/18 20:59 Multivitamins (Multivitamins) 1 tab DAILY ORAL 09/23/18 09:00 10/23/18 08:59 09/23/18 08:21 Ondansetron HCl (Zofran) 4 mg Q6H PRN IVP Nausea & Vomiting 09/22/18 00:45 10/22/18 00:44 Polyethylene Glycol (Miralax) 17 gm BIDPRN PRN ORAL Constipation 09/23/18 09:00 10/23/18 08:59 Quetiapine Fumarate (SEROquel) 25 mg EVERY 6 HOURS ORAL 09/23/18 12:00 10/23/18 11:59 09/23/18 17:22 Sodium Chloride 1,000 ml @ 75 mls/hr [id number] IVLG 09/22/18 01:39 10/22/18 01:38 09/23/18 17:43 Vancomycin HCl (Vanco rx to dose) 1 ea DAILY PRN MISC Per rx protocol 09/23/18 12:15 10/23/18 12:14 Vancomycin/Sodium Chloride 250 ml @ 166.667 mls/hr Q24H IVPB 09/23/18 13:00 09/28/18 12:59 09/23/18 13:28 Allergies: Coded Allergies: No Known Allergies (Unverified , 09/21/18) ROS Limited/Unobtainable: Yes Subjective more awake confused afebrile WBC decreased from 10 to 5 no longer tachycardic Objective Last Vital Signs Date Time Temp Pulse Resp B/P (MAP) Pulse Ox O2 Delivery O2 Flow Rate FiO2 09/23/18 16:20 98.3 65 18 151/64 (93) 97 09/23/18 08:42 Nasal Cannula 2.0 09/22/18 01:00 100 Laboratory Tests Test 09/23/18 05:20 White Blood Count 5.7 K/UL (4.8-10.8) Red Blood Count 3.77 M/UL (4.20-5.40) L Hemoglobin 11.1 G/DL (12.0-16.0) L Hematocrit 33.1 % (37.0-47.0) L Mean Corpuscular Volume 88 FL (80-99) Mean Corpuscular Hemoglobin 29.5 PG (27.0-31.0) Mean Corpuscular Hemoglobin Concent 33.6 G/DL (32.0-36.0) Red Cell Distribution Width 12.5 % (11.6-14.8) Platelet Count 98 K/UL (150-450) L Mean Platelet Volume 6.5 FL (6.5-10.1) Neutrophils (%) (Auto) % (45.0-75.0) Lymphocytes (%) (Auto) % (20.0-45.0) Monocytes (%) (Auto) % (1.0-10.0) Eosinophils (%) (Auto) % (0.0-3.0) Basophils (%) (Auto) % (0.0-2.0) Differential Total Cells Counted 100 Neutrophils % (Manual) 74 % (45-75) Lymphocytes % (Manual) 13 % (20-45) L Monocytes % (Manual) 12 % (1-10) H Eosinophils % (Manual) 1 % (0-3) Basophils % (Manual) 0 % (0-2) Band Neutrophils 0 % (0-8) Platelet Estimate Decreased L Platelet Morphology Normal Red Blood Cell Morphology Normal Sodium Level 141 MMOL/L (136-145) Potassium Level 3.8 MMOL/L (3.5-5.1) Chloride Level 109 MMOL/L (98-107) H Carbon Dioxide Level 24 MMOL/L (21-32) Anion Gap 8 mmol/L (5-15) Blood Urea Nitrogen 29 mg/dL (7-18) H Creatinine 1.3 MG/DL (0.55-1.30) Estimat Glomerular Filtration Rate mL/min (>60) Glucose Level 92 MG/DL (74-106) Calcium Level 9.6 MG/DL (8.5-10.1) Thyroid Stimulating Hormone (TSH) 6.855 uiU/mL (0.358-3.740) Microbiology Date/Time Source Procedure Growth Status 09/21/18 22:15 Blood Blood Culture - Preliminary Resulted 09/21/18 22:10 Blood Blood Culture - Preliminary Resulted 09/21/18 23:10 Nasal Nares Left Influenza Types A,B Antigen (FARRUKH) - Final Complete 09/21/18 23:15 Urine,Clean Catch Urine Culture - Preliminary Gram Negative Bacillus 1 Resulted 09/22/18 00:30 Rectum Received Intake and Output 09/22/18 09/23/18 19:00 07:00 Intake Total 635 ml Balance 635 ml Intake Oral 200 ml IV Total 435 ml # Voids 2 3 Objective GEN: awake and alert x person ~~~HEENT: ~Normocephalic/atraumatic. NECK: ~Supple. ~No JVD. ~~ LUNGS: ~Clear to auscultation bilaterally. ~No crackles, rhonchi, or rales. ~~ CARDIOVASCULAR: ~Regular rate and rhythm. ~Normal S1, S2. ~~ ABDOMEN: ~Soft. ~Obese, slightly distended. ~~ EXTREMITIES: ~No clubbing, cyanosis, or edema. Assessment/Plan Assessment/Plan ASSESSMENT: 1. Fever likely secondary to Gram neg bacillus UTI 2. Lethargy 3. Acute kidney injury, likely secondary to dehydration. 4. Tachycardia 5. dementia 6. h/o hypothyroidism 7. h/o dvt 8. Metabolic Encephalopathy 2/2 UTI PLAN: ~ 1. level of care - med/surg. 2. ID recs appreciated 3. abx - CTX and flagyl 4. resume home meds 5. f/u urine culture sensitivity 6. check Ft4 bc elevated TSH 7. IVF DC planning tomorrow depending on culture sens DVT px - Heparin Morales Green MD Sep 23, 2018 18:31
[2018-09-23 20:00] VITALS: BP 148/75
--- NOTE | 2018-09-23 20:01 | Consultation ---
History of Present Illness General Date patient seen: Sep 22, 2018 Chief Complaint: Fever Present Illness HPI 88-year-old female, who comes into [facility] with altered mental status. the pt is agitated and attempting to leave the pt has waxing and waning of consciousness the pt has poor memory and is easily agitated. the pt is delusional Allergies: Coded Allergies: No Known Allergies (Unverified , 09/21/18) Medication History Scheduled Amlodipine Besylate* (Amlodipine Besylate*), 5 MG ORAL DAILY, (Reported) Aspirin* (Aspir 81*), 81 MG ORAL DAILY, (Reported) Docusate Sodium* (Docusate Sodium*), 250 MG ORAL TWICE A DAY, (Reported) Escitalopram Oxalate (Escitalopram Oxalate*), 10 MG ORAL DAILY, (Reported) Gabapentin* (Gabapentin*), 100 MG ORAL THREE TIMES A DAY, (Reported) Ipratropium/Albuterol Sulfate (DuoNeb 0.5-3(2.5)mg/3ml), 3 ML HHN BID, (Reported ) Multivitamin (Multi Vitamin Daily), 1 TAB ORAL DAILY, (Reported) Olanzapine* (Zyprexa*), 2.5 MG BID, (Reported) Polyethylene Glycol 3350* (Miralax*), 17 GM ORAL BID, (Reported) Sennosides (Senna), 8.6 MG PO DAILY, (Reported) Scheduled PRN Acetaminophen* (Acetaminophen 325MG Tablet*), 325 MG ORAL BID PRN for Pain Scale (3-5), (Reported) Hydrocortisone (Anucort-Hc), 25 MG RECTAL BID PRN for Prn Chest Pain, (Reported) Hydrocortisone Acetate Supp (Hydrocortisone Acetate Supp), 25 MG RC BID PRN for For Pain, (Reported) Tramadol Hcl* (Ultram*), 50 MG ORAL BID PRN for For Pain, (Reported) Patient History Limited by: medical condition History Provided By: Medical Record, Caregiver, PMD Healthcare decision maker Resuscitation status Full Code Advanced Directive on File No Past Medical/Surgical History Past Medical/Surgical History: (1) Sepsis (2) Healthcare-associated pneumonia (3) Acute metabolic encephalopathy (4) UTI (urinary tract infection) (5) Anemia (6) Fever Review of Systems Psychiatric: Reports: anxiety, depressed feelings, emotional problems, hallucinations Physical Exam General Appearance: alert, confused, agitated Last 24 Hour Vital Signs Date Time Temp Pulse Resp B/P (MAP) Pulse Ox O2 Delivery O2 Flow Rate FiO2 09/23/18 16:20 98.3 65 18 151/64 (93) 97 09/23/18 15:20 71 09/23/18 12:08 98.3 77 18 150/70 (96) 97 09/23/18 11:53 79 09/23/18 08:42 Nasal Cannula 2.0 09/23/18 08:21 70 170/80 09/23/18 07:59 98.3 70 18 170/80 (110) 97 09/23/18 07:35 75 09/23/18 04:00 98.3 102 18 129/79 (96) 97 09/23/18 04:00 69 09/23/18 00:00 71 09/23/18 00:00 97.6 72 18 155/85 (108) 96 09/22/18 21:00 Nasal Cannula 2.0 09/22/18 20:00 83 09/22/18 20:00 98.1 77 16 152/72 (98) 95 Intake and Output 09/22/18 09/23/18 19:00 07:00 Intake Total 635 ml Balance 635 ml Intake Oral 200 ml IV Total 435 ml # Voids 2 3 Laboratory Tests Test 09/23/18 05:20 White Blood Count 5.7 K/UL (4.8-10.8) Red Blood Count 3.77 M/UL (4.20-5.40) L Hemoglobin 11.1 G/DL (12.0-16.0) L Hematocrit 33.1 % (37.0-47.0) L Mean Corpuscular Volume 88 FL (80-99) Mean Corpuscular Hemoglobin 29.5 PG (27.0-31.0) Mean Corpuscular Hemoglobin Concent 33.6 G/DL (32.0-36.0) Red Cell Distribution Width 12.5 % (11.6-14.8) Platelet Count 98 K/UL (150-450) L Mean Platelet Volume 6.5 FL (6.5-10.1) Neutrophils (%) (Auto) % (45.0-75.0) Lymphocytes (%) (Auto) % (20.0-45.0) Monocytes (%) (Auto) % (1.0-10.0) Eosinophils (%) (Auto) % (0.0-3.0) Basophils (%) (Auto) % (0.0-2.0) Differential Total Cells Counted 100 Neutrophils % (Manual) 74 % (45-75) Lymphocytes % (Manual) 13 % (20-45) L Monocytes % (Manual) 12 % (1-10) H Eosinophils % (Manual) 1 % (0-3) Basophils % (Manual) 0 % (0-2) Band Neutrophils 0 % (0-8) Platelet Estimate Decreased L Platelet Morphology Normal Red Blood Cell Morphology Normal Sodium Level 141 MMOL/L (136-145) Potassium Level 3.8 MMOL/L (3.5-5.1) Chloride Level 109 MMOL/L (98-107) H Carbon Dioxide Level 24 MMOL/L (21-32) Anion Gap 8 mmol/L (5-15) Blood Urea Nitrogen 29 mg/dL (7-18) H Creatinine 1.3 MG/DL (0.55-1.30) Estimat Glomerular Filtration Rate mL/min (>60) Glucose Level 92 MG/DL (74-106) Calcium Level 9.6 MG/DL (8.5-10.1) Thyroid Stimulating Hormone (TSH) 6.855 uiU/mL (0.358-3.740) Free Thyroxine 1.14 NG/DL (0.76-1.46) Height (Feet): 5 Height (Inches): 1.00 Weight (Pounds): 179 Medications Current Medications Medications (Trade) Dose Ordered Sig/Jonathon Route PRN Reason Start Time Stop Time Status Last Admin Dose Admin Acetaminophen (Tylenol) 650 mg Q4H PRN ORAL Mild Pain (Pain Scale 1-3) 09/22/18 00:45 10/22/18 00:44 09/22/18 20:39 Amlodipine Besylate (Norvasc) 5 mg DAILY ORAL 09/23/18 09:00 10/23/18 08:59 09/23/18 08:21 Aspirin (Ecotrin) 81 mg DAILY ORAL 09/23/18 09:00 10/23/18 08:59 09/23/18 08:21 Dextrose (Dextrose 50%) 25 ml Q30M PRN IV Hypoglycemia 09/22/18 00:45 10/22/18 00:44 Dextrose (Dextrose 50%) 50 ml Q30M PRN IV Hypoglycemia 09/22/18 00:45 10/22/18 00:44 Escitalopram Oxalate (Lexapro) 10 mg DAILY ORAL 09/23/18 09:00 10/23/18 08:59 09/23/18 08:21 Gabapentin (Neurontin) 100 mg THREE TIMES A DAY ORAL 09/23/18 09:00 10/23/18 08:59 09/23/18 17:22 Heparin Sodium (Porcine) (Heparin 5000 units/ml) 5,000 units EVERY 12 HOURS SUBQ 09/22/18 21:00 10/22/18 08:59 09/22/18 20:36 Meropenem 500 mg/ Sodium Chloride 55 ml @ 110 mls/hr EVERY 12 HOURS IVPB 09/23/18 21:00 09/28/18 20:59 Multivitamins (Multivitamins) 1 tab DAILY ORAL 09/23/18 09:00 10/23/18 08:59 09/23/18 08:21 Ondansetron HCl (Zofran) 4 mg Q6H PRN IVP Nausea & Vomiting 09/22/18 00:45 10/22/18 00:44 Polyethylene Glycol (Miralax) 17 gm BIDPRN PRN ORAL Constipation 09/23/18 09:00 10/23/18 08:59 Quetiapine Fumarate (SEROquel) 25 mg EVERY 6 HOURS ORAL 09/23/18 12:00 10/23/18 11:59 09/23/18 17:22 Sodium Chloride 1,000 ml @ 75 mls/hr [id number] IVLG 09/22/18 01:39 10/22/18 01:38 09/23/18 17:43 Vancomycin HCl (Vanco rx to dose) 1 ea DAILY PRN MISC Per rx protocol 09/23/18 12:15 10/23/18 12:14 Vancomycin/Sodium Chloride 250 ml @ 166.667 mls/hr Q24H IVPB 09/23/18 13:00 09/28/18 12:59 09/23/18 13:28 Assessment/Plan Problem List: (1) Acute metabolic encephalopathy ICD Codes: G93.41 - Metabolic encephalopathy SNOMED: [id number], [id number] Assessment/Plan dc zyprexa start seroquel prn the pt lacks capacity to leave Norman Abraham MD Sep 23, 2018 20:01
[2018-09-23] MEDS: Meropenem 500mg in NS 55ml IVPB SCH (21:03)
[2018-09-24] VITALS: BP 156/64
[2018-09-24 04:00] VITALS: BP 127/80
[2018-09-24 07:12] LABS: BASOPHILS % (AUTO) 1.4 % (0.0-2.0); EOSINOPHILS % (AUTO) 3.2 % (0.0-3.0); HEMOGLOBIN 10.4 G/DL (12.0-16.0); LYMPHOCYTES % (AUTO) 13.3 % (20.0-45.0); MEAN CORPUSCULAR VOLUME 88 FL (80-99); NEUTROPHILS % (AUTO) 66.1 % (45.0-75.0); PLATELET COUNT 126 K/UL (150-450); RED BLOOD COUNT 3.53 M/UL (4.20-5.40); RED CELL DISTRIBUTION WIDTH 12.3 % (11.6-14.8); WHITE BLOOD COUNT 4.1 K/UL (4.8-10.8)
[2018-09-24 07:49] LABS: ANION GAP 10 mmol/L (5-15); BLOOD UREA NITROGEN 29 mg/dL (7-18); CALCIUM 8.9 MG/DL (8.5-10.1); CARBON DIOXIDE 22 MMOL/L (21-32); CHLORIDE 111 MMOL/L (98-107); CREATININE 1.1 MG/DL (0.55-1.30); POTASSIUM 3.7 MMOL/L (3.5-5.1); SODIUM 143 MMOL/L (136-145)
[2018-09-24 08:00] VITALS: BP 150/76
[2018-09-24] MEDS ORDERED: Tubing IV Secondary IV ONE (08:50)
[2018-09-24] MEDS ORDERED: NS 275ml ONE (08:50)
[2018-09-24] MEDS: Meropenem 500mg in NS 55ml IVPB SCH ×2 (09:12→21:09)
[2018-09-24] MEDS: Heparin 5000 units/ml inj SUBQ SCH ×2 (09:13→21:09)
[2018-09-24] MEDS: Aspirin EC 81mg tab ORAL SCH (11:14)
[2018-09-24 11:58] VITALS: BP 143/74
[2018-09-24] MEDS: Vancomycin 750mg/NS 250ml IVPB SCH (12:46)
--- NOTE | 2018-09-24 15:32 | Internal Med Progress Note ---
Subjective Physician Name Morales Green Attending Physician Morales Green MD Current Medications Medications (Trade) Dose Ordered Sig/Jonathon Route PRN Reason Start Time Stop Time Status Last Admin Dose Admin Acetaminophen (Tylenol) 650 mg Q4H PRN ORAL Mild Pain (Pain Scale 1-3) 09/22/18 00:45 10/22/18 00:44 09/22/18 20:39 Amlodipine Besylate (Norvasc) 5 mg DAILY ORAL 09/23/18 09:00 10/23/18 08:59 09/24/18 11:18 Aspirin (Ecotrin) 81 mg DAILY ORAL 09/23/18 09:00 10/23/18 08:59 09/24/18 11:14 Dextrose (Dextrose 50%) 25 ml Q30M PRN IV Hypoglycemia 09/22/18 00:45 10/22/18 00:44 Dextrose (Dextrose 50%) 50 ml Q30M PRN IV Hypoglycemia 09/22/18 00:45 10/22/18 00:44 Escitalopram Oxalate (Lexapro) 10 mg DAILY ORAL 09/23/18 09:00 10/23/18 08:59 09/24/18 11:15 Gabapentin (Neurontin) 100 mg THREE TIMES A DAY ORAL 09/23/18 09:00 10/23/18 08:59 09/24/18 12:45 Heparin Sodium (Porcine) (Heparin 5000 units/ml) 5,000 units EVERY 12 HOURS SUBQ 09/22/18 21:00 10/22/18 08:59 09/24/18 09:13 Meropenem 500 mg/ Sodium Chloride 55 ml @ 110 mls/hr EVERY 12 HOURS IVPB 09/23/18 21:00 09/28/18 20:59 09/24/18 09:12 Multivitamins (Multivitamins) 1 tab DAILY ORAL 09/23/18 09:00 10/23/18 08:59 09/24/18 11:15 Ondansetron HCl (Zofran) 4 mg Q6H PRN IVP Nausea & Vomiting 09/22/18 00:45 10/22/18 00:44 Polyethylene Glycol (Miralax) 17 gm BIDPRN PRN ORAL Constipation 09/23/18 09:00 10/23/18 08:59 Quetiapine Fumarate (SEROquel) 25 mg EVERY 6 HOURS ORAL 09/23/18 12:00 10/23/18 11:59 09/24/18 05:55 Sodium Chloride 1,000 ml @ 75 mls/hr [id number] IVLG 09/22/18 01:39 10/22/18 01:38 09/23/18 21:08 Allergies: Coded Allergies: No Known Allergies (Unverified , 09/21/18) Subjective awake confused in aM afebrile Objective Last Vital Signs Date Time Temp Pulse Resp B/P (MAP) Pulse Ox O2 Delivery O2 Flow Rate FiO2 09/24/18 12:00 65 09/24/18 11:58 98.1 18 143/74 (97) 97 09/24/18 09:00 Nasal Cannula 2.0 09/22/18 01:00 100 Laboratory Tests Test 09/24/18 05:45 White Blood Count 4.1 K/UL (4.8-10.8) L Red Blood Count 3.53 M/UL (4.20-5.40) L Hemoglobin 10.4 G/DL (12.0-16.0) L Hematocrit 31.0 % (37.0-47.0) L Mean Corpuscular Volume 88 FL (80-99) Mean Corpuscular Hemoglobin 29.5 PG (27.0-31.0) Mean Corpuscular Hemoglobin Concent 33.6 G/DL (32.0-36.0) Red Cell Distribution Width 12.3 % (11.6-14.8) Platelet Count 126 K/UL (150-450) L Mean Platelet Volume 6.3 FL (6.5-10.1) L Neutrophils (%) (Auto) 66.1 % (45.0-75.0) Lymphocytes (%) (Auto) 13.3 % (20.0-45.0) L Monocytes (%) (Auto) 16.0 % (1.0-10.0) H Eosinophils (%) (Auto) 3.2 % (0.0-3.0) H Basophils (%) (Auto) 1.4 % (0.0-2.0) Sodium Level 143 MMOL/L (136-145) Potassium Level 3.7 MMOL/L (3.5-5.1) Chloride Level 111 MMOL/L (98-107) H Carbon Dioxide Level 22 MMOL/L (21-32) Anion Gap 10 mmol/L (5-15) Blood Urea Nitrogen 29 mg/dL (7-18) H Creatinine 1.1 MG/DL (0.55-1.30) Estimat Glomerular Filtration Rate mL/min (>60) Glucose Level 94 MG/DL (74-106) Calcium Level 8.9 MG/DL (8.5-10.1) Microbiology Date/Time Source Procedure Growth Status 09/21/18 22:15 Blood Blood Culture - Preliminary Gram Negative Bacillus 1 Resulted 09/21/18 22:10 Blood Blood Culture - Preliminary Gram Negative Bacillus 1 Resulted 09/22/18 00:30 Nasal Nares MRSA Culture - Final NO METHICILLIN RESISTANT STAPH AUREUS... Complete 09/21/18 23:10 Nasal Nares Left Influenza Types A,B Antigen (FARRUKH) - Final Complete 09/21/18 23:15 Urine,Clean Catch Urine Culture - Final Escherichia Coli Complete 09/22/18 00:30 Rectum VRE Culture - Final NO VANCOMYCIN RESISTANT ENTEROCOCCUS ... Complete 09/22/18 00:30 Rectum - Final NO CARBAPENEM-RESISTANT ENTEROBACTERI... Complete Intake and Output 09/23/18 09/24/18 18:59 06:59 Intake Total 1268.334 ml 913.75 ml Output Total 1 ml Balance 1268.334 ml 912.75 ml Intake Oral 450 ml IV Total 818.334 ml 913.75 ml Output Stool Total 1 ml # Voids 3 2 Objective GEN: awake and alert x person ~~~HEENT: ~Normocephalic/atraumatic. NECK: ~Supple. ~No JVD. ~~ LUNGS: ~Clear to auscultation bilaterally. ~No crackles, rhonchi, or rales. ~~ CARDIOVASCULAR: ~Regular rate and rhythm. ~Normal S1, S2. ~~ ABDOMEN: ~Soft. ~Obese, slightly distended. ~~ EXTREMITIES: ~No clubbing, cyanosis, or edema. Assessment/Plan Assessment/Plan ASSESSMENT: 1. Ecoli Pyelonephritis with bacteremia 2. Lethargy 3. Acute kidney injury, likely secondary to dehydration. 4. Tachycardia 5. dementia 6. h/o hypothyroidism 7. h/o dvt 8. Metabolic Encephalopathy PLAN: ~ 1. level of care - med/surg. 2. ID recs appreciated 3. abx - Meropenem and vanco 4. resume home meds 5. f/u bcx species and sensitivity 7. IVF DC planning - pending culture sensativity DVT px - Heparin Morales Green MD Sep 24, 2018 15:32
[2018-09-24 16:00] VITALS: BP 154/68
[2018-09-24 20:00] VITALS: BP 156/70
[2018-09-25] VITALS: BP 147/85
[2018-09-25 04:00] VITALS: BP 150/82
[2018-09-25 06:38] LABS: BASOPHILS % (AUTO) 1.3 % (0.0-2.0); EOSINOPHILS % (AUTO) 3.3 % (0.0-3.0); HEMOGLOBIN 11.8 G/DL (12.0-16.0); LYMPHOCYTES % (AUTO) 17.2 % (20.0-45.0); MEAN CORPUSCULAR VOLUME 88 FL (80-99); MONOCYTES % (AUTO) 13.1 % (1.0-10.0); NEUTROPHILS % (AUTO) 65.1 % (45.0-75.0); PLATELET COUNT 141 K/UL (150-450); RED BLOOD COUNT 3.98 M/UL (4.20-5.40); RED CELL DISTRIBUTION WIDTH 12.2 % (11.6-14.8); WHITE BLOOD COUNT 4.2 K/UL (4.8-10.8)
[2018-09-25 08:00] VITALS: BP_SYST 121; BP_SYST 170; BP_DIAS 67; BP_DIAS 80
[2018-09-25] MEDS: Meropenem 500mg in NS 55ml IVPB SCH (09:21)
[2018-09-25] MEDS: Aspirin EC 81mg tab ORAL SCH (09:22)
[2018-09-25] MEDS: Heparin 5000 units/ml inj SUBQ SCH (09:42)
[2018-09-25 12:00] VITALS: BP 150/67
--- NOTE | 2018-09-25 12:19 | Infectious Diseases Prog Note ---
Assessment/Plan Assessment/Plan ASSESSMENT AND PLAN: 1. e.coli uti bacteremia, e.coli uti/pyelonephritis, sepsis, gram neg sepsis, sirs, fevers, ams - clinically much improved - fevers resolved, patient much more alert - on meropenem - can change to oral ceftin x 10 days to complete approximately 2 weeks treatment course - d/w Dr. Green, d/w patient and family at the bedside - monitor labs - multiple orders entered 2. The patient has hypertension. Blood pressure treatment per primary. 3. Dimension. 4. Hyperlipidemia. 5. Depression. 6. Hypothyroidism 7. Constipation. 8. History of DVT. 9. The patient is on Coumadin. 10. The patient also is anemic. 11. No known drug allergies. 12. Social history is negative. 13. Family history is noncontributory. 14. MAR was noted. 15. Case discussed with RN. 16. Case discussed with Dr. Morales Green yesterday. 17. Continue treatment per primary consultants. 18. Notes and records were noted and orders were entered. Subjective Constitutional: Denies: fever HEENT: Denies: congestion Respiratory: Denies: shortness of breath Cardiovascular: Denies: chest pain Gastrointestinal/Abdominal: Denies: nausea, vomiting, diarrhea Genitourinary: Reports: other - no reid, no cva pain Neurologic: Denies: headache Psychiatric: Denies: depression Skin: Denies: rash Hematologic: Denies: bleeding Musculoskeletal: Denies: pain Allergies: Coded Allergies: No Known Allergies (Unverified , 09/21/18) Objective Vital Signs Last 24 Hour Vital Signs Date Time Temp Pulse Resp B/P (MAP) Pulse Ox O2 Delivery O2 Flow Rate FiO2 09/25/18 09:23 76 170/80 09/25/18 09:00 Nasal Cannula 2.0 09/25/18 08:00 98.8 76 16 170/80 (110) 97 09/25/18 08:00 76 09/25/18 04:00 97.8 64 20 150/82 (104) 97 09/25/18 04:00 60 09/25/18 00:00 64 09/25/18 00:00 97.6 66 20 147/85 (105) 96 09/24/18 21:00 Nasal Cannula 2.0 09/24/18 20:00 98.3 62 19 156/70 (98) 96 09/24/18 20:00 62 09/24/18 16:00 72 09/24/18 16:00 98.4 67 19 154/68 (96) 98 Height (Feet): 5 Height (Inches): 1.00 Weight (Pounds): 179 General Appearance: no acute distress HEENT: normocephalic, atraumatic, anicteric, mucous membranes moist Respiratory/Chest: lungs clear, normal breath sounds, no respiratory distress, no accessory muscle use Cardiovascular: normal rate, regular rhythm, no gallop/murmur, no JVD Abdomen: normal bowel sounds, soft, non tender, no organomegaly, non distended Genitourinary: other - no reid Extremities: no cyanosis Skin: no rash Neurologic/Psychiatric: supervisor cd area II-XII grossly normal, alert, responsive, other - much more alert and communicative Lymphatic: no neck adenopathy Musculoskeletal: no effusion Objective Chest x-ray - 09/23/18 - atx Microbiology Date/Time Source Procedure Growth Status 09/24/18 05:50 Blood Blood Culture - Preliminary NO GROWTH AFTER 24 HOURS Resulted 09/22/18 00:30 Nasal Nares MRSA Culture - Final NO METHICILLIN RESISTANT STAPH AUREUS... Complete 09/21/18 23:15 Urine,Clean Catch Urine Culture - Final Escherichia Coli Complete 09/22/18 00:30 Rectum VRE Culture - Final NO VANCOMYCIN RESISTANT ENTEROCOCCUS ... Complete Microbiology Date/Time Source Procedure Growth Status 09/24/18 05:50 Blood Blood Culture - Preliminary NO GROWTH AFTER 24 HOURS Resulted 09/24/18 05:45 Blood Blood Culture - Preliminary NO GROWTH AFTER 24 HOURS Resulted Labs Test 09/23/18 05:20 09/24/18 05:45 09/25/18 05:20 White Blood Count 5.7 K/UL (4.8-10.8) 4.1 K/UL (4.8-10.8) 4.2 K/UL (4.8-10.8) Red Blood Count 3.77 M/UL (4.20-5.40) 3.53 M/UL (4.20-5.40) 3.98 M/UL (4.20-5.40) Hemoglobin 11.1 G/DL (12.0-16.0) 10.4 G/DL (12.0-16.0) 11.8 G/DL (12.0-16.0) Hematocrit 33.1 % (37.0-47.0) 31.0 % (37.0-47.0) 35.0 % (37.0-47.0) Mean Corpuscular Volume 88 FL (80-99) 88 FL (80-99) 88 FL (80-99) Mean Corpuscular Hemoglobin 29.5 PG (27.0-31.0) 29.5 PG (27.0-31.0) 29.6 PG (27.0-31.0) Mean Corpuscular Hemoglobin Concent 33.6 G/DL (32.0-36.0) 33.6 G/DL (32.0-36.0) 33.7 G/DL (32.0-36.0) Red Cell Distribution Width 12.5 % (11.6-14.8) 12.3 % (11.6-14.8) 12.2 % (11.6-14.8) Platelet Count 98 K/UL (150-450) 126 K/UL (150-450) 141 K/UL (150-450) Mean Platelet Volume 6.5 FL (6.5-10.1) 6.3 FL (6.5-10.1) 6.0 FL (6.5-10.1) Neutrophils (%) (Auto) % (45.0-75.0) 66.1 % (45.0-75.0) 65.1 % (45.0-75.0) Lymphocytes (%) (Auto) % (20.0-45.0) 13.3 % (20.0-45.0) 17.2 % (20.0-45.0) Monocytes (%) (Auto) % (1.0-10.0) 16.0 % (1.0-10.0) 13.1 % (1.0-10.0) Eosinophils (%) (Auto) % (0.0-3.0) 3.2 % (0.0-3.0) 3.3 % (0.0-3.0) Basophils (%) (Auto) % (0.0-2.0) 1.4 % (0.0-2.0) 1.3 % (0.0-2.0) Differential Total Cells Counted 100 Neutrophils % (Manual) 74 % (45-75) Lymphocytes % (Manual) 13 % (20-45) Monocytes % (Manual) 12 % (1-10) Eosinophils % (Manual) 1 % (0-3) Basophils % (Manual) 0 % (0-2) Band Neutrophils 0 % (0-8) Platelet Estimate Decreased Platelet Morphology Normal Red Blood Cell Morphology Normal Sodium Level 141 MMOL/L (136-145) 143 MMOL/L (136-145) Potassium Level 3.8 MMOL/L (3.5-5.1) 3.7 MMOL/L (3.5-5.1) Chloride Level 109 MMOL/L (98-107) 111 MMOL/L (98-107) Carbon Dioxide Level 24 MMOL/L (21-32) 22 MMOL/L (21-32) Anion Gap 8 mmol/L (5-15) 10 mmol/L (5-15) Blood Urea Nitrogen 29 mg/dL (7-18) 29 mg/dL (7-18) Creatinine 1.3 MG/DL (0.55-1.30) 1.1 MG/DL (0.55-1.30) Estimat Glomerular Filtration Rate mL/min (>60) mL/min (>60) Glucose Level 92 MG/DL (74-106) 94 MG/DL (74-106) Calcium Level 9.6 MG/DL (8.5-10.1) 8.9 MG/DL (8.5-10.1) Thyroid Stimulating Hormone (TSH) 6.855 uiU/mL (0.358-3.740) Free Thyroxine 1.14 NG/DL (0.76-1.46) Laboratory Tests Test 09/25/18 05:20 White Blood Count 4.2 K/UL (4.8-10.8) L Red Blood Count 3.98 M/UL (4.20-5.40) L Hemoglobin 11.8 G/DL (12.0-16.0) L Hematocrit 35.0 % (37.0-47.0) L Mean Corpuscular Volume 88 FL (80-99) Mean Corpuscular Hemoglobin 29.6 PG (27.0-31.0) Mean Corpuscular Hemoglobin Concent 33.7 G/DL (32.0-36.0) Red Cell Distribution Width 12.2 % (11.6-14.8) Platelet Count 141 K/UL (150-450) L Mean Platelet Volume 6.0 FL (6.5-10.1) L Neutrophils (%) (Auto) 65.1 % (45.0-75.0) Lymphocytes (%) (Auto) 17.2 % (20.0-45.0) L Monocytes (%) (Auto) 13.1 % (1.0-10.0) H Eosinophils (%) (Auto) 3.3 % (0.0-3.0) H Basophils (%) (Auto) 1.3 % (0.0-2.0) Current Medications Medications (Trade) Dose Ordered Sig/Jonathon Route PRN Reason Start Time Stop Time Status Last Admin Dose Admin Acetaminophen (Tylenol) 650 mg Q4H PRN ORAL Mild Pain (Pain Scale 1-3) 09/22/18 00:45 10/22/18 00:44 09/22/18 20:39 Amlodipine Besylate (Norvasc) 5 mg DAILY ORAL 09/23/18 09:00 10/23/18 08:59 09/25/18 09:23 Aspirin (Ecotrin) 81 mg DAILY ORAL 09/23/18 09:00 10/23/18 08:59 09/25/18 09:22 Dextrose (Dextrose 50%) 25 ml Q30M PRN IV Hypoglycemia 09/22/18 00:45 10/22/18 00:44 Dextrose (Dextrose 50%) 50 ml Q30M PRN IV Hypoglycemia 09/22/18 00:45 10/22/18 00:44 Escitalopram Oxalate (Lexapro) 10 mg DAILY ORAL 09/23/18 09:00 10/23/18 08:59 09/25/18 09:22 Gabapentin (Neurontin) 100 mg THREE TIMES A DAY ORAL 09/23/18 09:00 10/23/18 08:59 09/25/18 09:22 Heparin Sodium (Porcine) (Heparin 5000 units/ml) 5,000 units EVERY 12 HOURS SUBQ 09/22/18 21:00 10/22/18 08:59 09/25/18 09:42 Meropenem 500 mg/ Sodium Chloride 55 ml @ 110 mls/hr EVERY 12 HOURS IVPB 09/23/18 21:00 09/28/18 20:59 09/25/18 09:21 Multivitamins (Multivitamins) 1 tab DAILY ORAL 09/23/18 09:00 10/23/18 08:59 09/25/18 09:22 Ondansetron HCl (Zofran) 4 mg Q6H PRN IVP Nausea & Vomiting 09/22/18 00:45 10/22/18 00:44 Polyethylene Glycol (Miralax) 17 gm BIDPRN PRN ORAL Constipation 09/23/18 09:00 10/23/18 08:59 Quetiapine Fumarate (SEROquel) 25 mg EVERY 6 HOURS ORAL 09/23/18 12:00 10/23/18 11:59 09/25/18 05:33 Sodium Chloride 1,000 ml @ 75 mls/hr [id number] IVLG 09/22/18 01:39 10/22/18 01:38 09/25/18 05:33 Michael Menendez MD Sep 25, 2018 12:19
[2018-09-25] MEDS ORDERED: CEFUROXIME500 MG PO (15:37)
--- NOTE | 2018-09-26 00:34 | Discharge Summary ---
Discharge Summary Hospital Course Date of Admission Sep 21, 2018 at 23:28 Date of Discharge Sep 25, 2018 at 15:40 Admitting Diagnosis sepsis, pneumonia HPI Jennifer Bryant is a 88 year old female who was admitted on Sep 21, 2018 at 23: 28 for Sepsis/Pneumonia #[id number] Discharge Condition Upon Discharge: stable Discharge Disposition Patient was discharged to [facility] Morales Green MD Sep 26, 2018 00:34
--- NOTE | 2018-09-26 04:00 | Discharge Summary ---
DATE OF ADMISSION: 09/21/2018 DATE OF DISCHARGE: 09/25/2018 BRIEF HOSPITAL COURSE AND SUMMARY: This is an 88-year-old female with past medical history of DVT, on Coumadin; dementia; hypertension; hyperlipidemia; major depressive disorder; and hypothyroidism, who presented from [place], who mentioned for a fever of 101 degrees. Her UA showed greater than 180 white blood cells. Her urine culture and her blood culture grew out E. coli. The patient was started on ceftriaxone. The patient is being discharged with Ceftin to complete 10 days. Her fever has resolved. Her blood pressure and vitals were stable. The patient upon admission was more confusing, baseline, and her mental status is reaching the baseline at this time. DISCHARGE CONDITION: Stable. DISCHARGE INSTRUCTIONS: The patient to complete Ceftin x10 days, to complete a 2-week course of treatment. DISCHARGE DIAGNOSES: 1. E. coli bacteremia secondary to pyelonephritis. 2. Sepsis. 3. Hypothyroidism. 4. History of DVT. 5. Dementia. Morales Green MD DR: ASAD JOB#: [id number] CC:
== END 2018-09-25 15:40 | DRG 871 ==
LOC: EDBD 21:13 → EMR 21:45 → EDBEDREQ 23:11 → 2E 23:28 → EDBEDREQ 09-22 00:23
DX: A41.9 Sepsis, unspecified organism (principal); G93.41 Metabolic encephalopathy; N17.9 Acute kidney failure, unspecified; N12 Tubulo-interstitial nephritis, not specified as acute or chronic; I10 Essential (primary) hypertension; E78.5 Hyperlipidemia, unspecified; F32.9 Major depressive disorder, single episode, unspecified; E03.9 Hypothyroidism, unspecified; E86.0 Dehydration; K59.00 Constipation, unspecified; G30.9 Alzheimer's disease, unspecified; F02.80 Dementia in other diseases classified elsewhere, unspecified severity, without behavioral disturbance, psychotic disturbance, mood disturbance, and anxiety; G62.9 Polyneuropathy, unspecified; D64.9 Anemia, unspecified; Z74.01 Bed confinement status; B96.20 Unspecified Escherichia coli [E. coli] as the cause of diseases classified elsewhere; Z86.718 Personal history of other venous thrombosis and embolism; Z79.01 Long term (current) use of anticoagulants
CPT/HCPCS: 36415; 71045; 80048; 80053; 81003; 82550; 82553; 83605; 84439; 84443; 84484; 85007; 85025; 86710; 87040; 87081; 87086; 87181; 93005; 96361; 96365; 96368; 99285